=== PATIENT | female | born 1975 | race Caucasian/White ===

== ENCOUNTER 2019-12-12 16:04 | Outpatient (CLI) | payer BC, SELFPAY ==
--- NOTE | ~2019-12-12 | MM_ITS ---
EXAMINATION: MM screening dara BI w segun HISTORY: Screening mammogram TECHNIQUE: Craniocaudal and mediolateral oblique 3-D tomosynthesis images were obtained and synthetic 2-D images were generated. CAD analysis was submitted and interpreted. COMPARISON: 08/04/2017, 11/08/2014 bilateral digital screening mammogram examinations BREAST PARENCHYMAL COMPOSITION: There are scattered areas of fibroglandular density. FINDINGS: There is a biopsy marker on the right; history of prior benign right breast biopsy. There is an approximately 4 mm asymmetric ill-defined irregular opacity in the posterior lateral aspe ct of the left breast (craniocaudal Tomosynthesis image 29/77). Otherwise there is no evidence of suspicious mass, calcification, or architectural distortion to sugg est malignancy in either breast. There has been no suspicious interval change. IMPRESSION: 1. Asymmetric 4 mm ill-defined opacity in posterior lateral left breast 2. Diagnostic left mammogram is recommended, with ultrasound if required BI-RADS Category 0: Incomplete: Needs additional imaging evaluation. Reviewed, dictated and finalized at location A.
== END 2019-12-12 16:05 | disposition home or self-care (01) ==
LOC: ANHIMG 16:07
PROVIDERS: PCP Internal Medicine; Visit Provider Clinical Nurse Specialist
DX: Z12.31 Encounter for screening mammogram for malignant neoplasm of breast (principal); R92.8 Other abnormal and inconclusive findings on diagnostic imaging of breast
CPT/HCPCS: 77063; 77067

== ENCOUNTER 2020-01-04 12:50 | Outpatient (CLI) | payer BC, SELFPAY ==
--- NOTE | ~2020-01-04 | MM_ITS ---
EXAMINATION: MM diagnostic mammo unilat LT HISTORY: Left breast asymmetry TECHNIQUE: Additional 3-D tomosynthesis images of the left breast were performed and synthetic 2-D im ages were generated. CAD analysis was submitted and interpreted. COMPARISON: 12/12/2019, 08/04/2017, 11/08/2014 FINDINGS: There is a return to baseline fibroglandular appearance in the left breast in the area ques tioned on screening mammogram. No suspicious mass, calcification, or architectural distortion are vita ntified. IMPRESSION: 1. No mammographic evidence of malignancy. 2. Recommend routine screening mammography in one year. BI-RADS Category 1: Negative Reviewed, dictated and finalized at location A. 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
== END 2020-01-04 12:51 | disposition home or self-care (01) ==
LOC: ANHIMG 12:57
PROVIDERS: PCP Internal Medicine; Visit Provider Clinical Nurse Specialist
DX: R92.8 Other abnormal and inconclusive findings on diagnostic imaging of breast (principal)
CPT/HCPCS: 77065

== ENCOUNTER 2020-09-13 13:31 | Outpatient (CLI) | payer OTHER, SELFPAY ==
--- NOTE | ~2020-09-13 | XR_ITS ---
XR knee LT min 4V DATE: 09/13/2020 14:11 INDICATION: Bilateral knee pain, cracking, popping TECHNIQUE: [place], lateral, AP and PA views COMPARISON: None FINDINGS: No fracture or dislocation or joint effusion. No periosteal reaction or bone destruction. N o opaque intra-articular loose body or chondrocalcinosis. IMPRESSION: No significant abnormality Reviewed, dictated and finalized at location A. IMPRESSION: No significant abnormality
--- NOTE | ~2020-09-13 | XR_ITS ---
XR knee RT min 4V DATE: 09/13/2020 14:11 INDICATION: Bilateral knee pain, cracking, popping TECHNIQUE: [place], lateral, PA and AP views COMPARISON: None FINDINGS: No fracture or dislocation or joint effusion. No periosteal reaction or bone destruction. N o radiopaque intra-articular loose body or chondrocalcinosis. Joint spaces are well preserved. IMPRESSION: Negative Reviewed, dictated and finalized at location A. IMPRESSION: Negative
== END 2020-09-13 13:32 | disposition home or self-care (01) ==
PROVIDERS: PCP Internal Medicine; Visit Provider Clinical Nurse Specialist
DX: M25.569 Pain in unspecified knee (principal)
CPT/HCPCS: 73564

== ENCOUNTER 2021-05-05 13:59 | Outpatient (CLI) | payer OTHER, SELFPAY ==
[2021-05-05 14:19] LABS: Basophils Absolute Auto 0.1 K/mm3 (0.0-0.1); Basophils Percent Auto 0.6 % (0.2-1.2); Eosinophils Absolute Auto 0.1 K/mm3 (0-0.3); Eosinophils Percent Auto 0.9 % (0-4.4); Hematocrit 40.5 % (37.0-47.0); Hemoglobin 13.5 g/dL (12.0-15.0); Immature Granulocyte Absolute 0.06 K/mm3 (0.00-0.031); Immature Granulocyte Percent A 0.5 % (0-0.5); Lymphocytes Absolute Auto 3.66 K/mm3 (0.9-3.2); Lymphocytes Percent Auto 29.6 % (18.3-44.2); Mean Corpuscular HGB Conc 33.3 g/dl (32-36); Mean Corpuscular Volume 87.1 fl (80-100); Mean Platelet Volume 8.9 fl (7.4-10.4); Monocytes Absolute Auto 1.2 K/mm3 (0.1-0.6); Monocytes Percent Auto 9.5 % (2.6-8.5); Neutrophils Absolute Auto 7.3 K/mm3 (1.3-6.7); Neutrophils Percent Auto 58.9 % (45.5-73.1); Platelet Count Result 308 k/mm3 (150-375); Red Blood Count 4.65 M/mm3 (4.2-5.4); Red Cell Distribution Width 12.8 % (11.5-14.5); White Blood Count 12.4 K/mm3 (4.5-10.0)
== END 2021-05-05 14:00 | disposition home or self-care (01) ==
LOC: ANHLAB 14:00
PROVIDERS: PCP Internal Medicine; Visit Provider Clinical Nurse Specialist
DX: D72.829 Elevated white blood cell count, unspecified (principal)
CPT/HCPCS: 36415; 85025

== ENCOUNTER → 2021-06-03 01:42 | Outpatient (CLI) | payer OTHER, SELFPAY ==
[2021-06-03 11:23] LABS: SARS-CoV-2 RNA PCR Negative
== END ==
PROVIDERS: PCP Internal Medicine; Visit Provider Clinical Nurse Specialist
DX: R05.9 Cough, unspecified (principal); Z20.822 Contact with and (suspected) exposure to COVID-19
CPT/HCPCS: C9803; U0003; U0005

== ENCOUNTER → 2021-06-04 09:05 | Outpatient (CLI) | payer OTHER, SELFPAY ==
--- NOTE | ~2021-06-04 | XR_ITS ---
EXAMINATION: XR chest 2V DATE: 06/04/2021 09:34 INDICATION: Cough, unspecified. TECHNIQUE: Frontal and lateral views of the chest were obtained. COMPARISON: Chest 2 views 11/20/2015 FINDINGS: The chest demonstrates clear lungs without pneumonia, pleural effusion, or pneumothorax. Th e heart size is normal. IMPRESSION: 1. No acute cardiopulmonary disease. Reviewed, dictated and finalized at location A.
== END ==
PROVIDERS: Visit Provider Clinical Nurse Specialist
DX: R05.9 Cough, unspecified (principal); R06.02 Shortness of breath
CPT/HCPCS: 71046

== ENCOUNTER 2021-07-16 16:40 | Outpatient (CLI) | payer OTHER, SELFPAY ==
--- NOTE | ~2021-07-16 | XR_ITS ---
EXAMINATION: XR chest 2V Exam Date/Time: 07/16/2021 16:50 CDT HISTORY: R06.02 -COUGH,CHRONIC STERNAL CP,SOB Comparison: 06/04/2021. RESULT: Lines, tubes, and devices: None. Lungs and pleura: Clear. Cardiomediastinal silhouette: Stable cardiomediastinal silhouette. Other: No acute osseous or upper abdominal finding. IMPRESSION: No acute cardiopulmonary process. Reviewed, dictated and finalized at location K.
== END 2021-07-16 16:41 | disposition home or self-care (01) ==
PROVIDERS: PCP Internal Medicine; Visit Provider Clinical Nurse Specialist
DX: R06.02 Shortness of breath (principal); R05.9 Cough, unspecified
CPT/HCPCS: 71046

== ENCOUNTER 2021-09-10 12:37 | Outpatient (CLI) | payer OTHER, SELFPAY ==
--- NOTE | 2021-09-12 20:11 | P.PCNPFT_ITS ---
PFT Procedure Performed PFT Procedure Performed Spirometry with Pre/Post Bronchodilator Plethysmography (Lung Vol) Diffusing Cap (DLCO) Flow Vol Loop PFT Interpretation DOS: 09/10/2021 REQUESTING: PRISCILLA Kaplan REASON FOR TESTING: Shortness of breath PULMONARY FUNCTION TESTS Results are reliable and reproducible. BMI is 36.4 Spirometry: The pre-bronchodilator FEV1 is 2.73 L, 100%, normal. The pre- bronchodilator FVC is 3.41 L, 101%, normal. The FEV1/FVC is 80%, normal. The EXC69-87% is 94%. There is a 1% decrease in FEV1, 2.72 L. There is a 4% decrease in FVC, 3.28 L. There is a 19% increase in YII84-64%, 500 ml. Lung volumes: Total lung capacity is 97%, 4.75 L. FRC 71%, 1.95 L, within the normal range. ERV 17%, 0.18 L, severely reduced. This may be due to increased BMI. RV is 79%, 1.34 L, normal. RV/TLC is 28%, normal, no air trapping. Diffusion: DLCO mildly decreased, 68%. DLCO/VA 107%, normal. Flow volume loop: Unremarkable. IMPRESSION: Normal spirometry, normal lung volumes, mild diffusion impairment. Jewels Machuca MD
== END 2021-09-10 12:38 | disposition home or self-care (01) ==
PROVIDERS: PCP Internal Medicine; Visit Provider Clinical Nurse Specialist
DX: R06.02 Shortness of breath (principal)
CPT/HCPCS: 94060; 94726; 94729

== ENCOUNTER → 2021-09-22 12:41 | Outpatient (CLI) | payer OTHER, SELFPAY ==
--- NOTE | ~2021-09-22 | CT_ITS ---
EXAMINATION: CT diagnostic chest w con DATE: 09/22/2021 13:11 INDICATION: Persistent cough. Chest pain. Shortness of breath. TECHNIQUE: Computed tomography (CT) of the chest was performed with 75 CC Omnipaque 350 intravenous c ontrast. Automated exposure control and iterative reconstruction technique were employed. Exam dose: 579.47 mGy-cm total exam DLP. COMPARISON: 07/16/2021 PA and lateral chest FINDINGS: The lungs are clear of infiltrate or consolidation or mass lesion. Normal heart size. No pericardial or pleural effusion. No thoracic aortic aneurysm or dissection. No hilar or mediastinal mass lesion or lymphadenopathy. Hepatic steatosis. 1.6 x 2.3 cm gallstone. Normal morphology of the adrenal glands. Included skeletal structures are unremarkable other than degenerative change of the cervical and thor acic spine, without evidence of suspicious lytic or blastic lesion. IMPRESSION: No significant abnormality Reviewed, dictated and finalized at Location A. Reviewed, dictated and finalized at location B. IMPRESSION: No significant abnormality
[2021-09-22 13:02] LABS: Estimated Glomerular Filt Rate > 60
== END ==
PROVIDERS: PCP Clinical Nurse Specialist; Visit Provider Clinical Nurse Specialist
DX: R05.9 Cough, unspecified (principal); R06.02 Shortness of breath; R07.9 Chest pain, unspecified
CPT/HCPCS: 71260; Q9967

== ENCOUNTER → 2022-01-20 15:41 | Outpatient (CLI) | payer OTHER, SELFPAY ==
--- NOTE | ~2022-01-20 | XR_ITS ---
XR lumbar spine 2-3V DATE: 01/20/2022 16:18 INDICATION: Back pain for 2 weeks TECHNIQUE: AP, lateral, coned lateral lumbosacral views COMPARISON: 09/22/2021 CT chest FINDINGS: Chronic mild anterior wedging of T10 and T11. There is degenerative spurring in the lower t horacic spine. Normal alignment of the lumbar vertebrae. No fracture or bone destruction. The lumbar pedicles are in tact. No spondylolisthesis. Moderate degenerative disease at L1-2 and L2-3, mild degenerative disc disease at L3-4. Moderately severe degenerative disc disease at L4-5 and L5-S1. The sacroiliac joints are intact. IUD overlies the pelvis. IMPRESSION: Multilevel degenerative disc disease Reviewed, dictated and finalized at location B. 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
== END ==
PROVIDERS: PCP Clinical Nurse Specialist; Visit Provider Clinical Nurse Specialist
DX: M54.9 Dorsalgia, unspecified (principal); M51.36 Other intervertebral disc degeneration, lumbar region
CPT/HCPCS: 72100

== ENCOUNTER → 2022-03-17 10:09 | Outpatient (CLI) | payer OTHER, SELFPAY ==
--- NOTE | ~2022-03-17 | MM_ITS ---
EXAMINATION: MM screening dara BI w segun HISTORY: Screening mammogram TECHNIQUE: Craniocaudal and mediolateral oblique 3-D tomosynthesis images were obtained and synthetic 2-D images were generated. CAD analysis was submitted and interpreted. COMPARISON: 01/04/2020 diagnostic left mammogram 12/12/2019, 08/04/2017 bilateral screening mammogram examinations BREAST PARENCHYMAL COMPOSITION: There are scattered areas of fibroglandular density. FINDINGS: Biopsy marker on the right; history of prior benign right breast biopsy. Stable benign prom inent calcification in the upper mid right breast. Stable 5 mm opacity in the posterior mid to lower outer left breast since 2018. There is no evidence of suspicious mass, calcification, or architectura l distortion to suggest malignancy in either breast. There has been no suspicious interval change. IMPRESSION: 1. No mammographic evidence of malignancy. 2. Recommend routine screening mammography in one year. BI-RADS Category 2: Benign finding(s). Reviewed, dictated and finalized at location A. MEN
== END ==
PROVIDERS: PCP Internal Medicine; Visit Provider Obstetrics & Gynecology Gynecology
DX: Z12.31 Encounter for screening mammogram for malignant neoplasm of breast (principal)
CPT/HCPCS: 77063; 77067

== ENCOUNTER 2022-03-17 16:26 | Outpatient (CLI) | payer OTHER, SELFPAY ==
--- NOTE | ~2022-03-17 | MR_ITS ---
MRI of the lumbar spine Clinical History: Back pain Technique: Axial T2-weighted images, and sagittal T1-weighted, T2-weighted, and T2 fat-sat images wer e acquired. Findings: There is no fracture or subluxation of the lumbar spine. Vertebral bodies maintain normal h eight and alignment. No focal bone marrow signal abnormality seen. At L1-L2, there is no disc bulge or herniation. There is no spinal canal stenosis or neural foraminal narrowing. At L2-L3, there is no significant disc bulge or herniation. There is minimal facet arthropathy. No sp inal canal stenosis or neural foraminal narrowing. At L3-L4, there is mild diffuse disc bulge and mild facet arthropathy. There is minimal compression o f the thecal sac at this level. Right neural foramen is mildly narrowed. Left neural foramen preserve d. At L4-L5, there is mild diffuse disc bulge and mild facet arthropathy. There is probable mild lateral recess stenosis bilaterally. There is moderate left neural foraminal narrowing and mild right neural foraminal narrowing. At L5-S1, there is mild disc bulge. There is mild facet arthropathy. No spinal canal stenosis. There is probable mild narrowing of the right neural foramen related to disc bulge. Left neural foramen pre served. Paravertebral soft tissues are unremarkable. Impression: Mild degenerative spondylosis, as detailed above. Findings are probably worst at L3-L4 and L4-L5. Reviewed, dictated and finalized at [facility]. 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 Findings are probably worst a t L3-L4 and L4-L5.
== END 2022-03-17 16:27 ==
PROVIDERS: PCP Internal Medicine; Visit Provider Nurse Practitioner
DX: M47.816 Spondylosis without myelopathy or radiculopathy, lumbar region (principal); M54.50 Low back pain, unspecified
CPT/HCPCS: 72148

== ENCOUNTER 2023-11-01 14:57 | Outpatient (CLI) | payer BC, SELFPAY ==
--- NOTE | ~2023-11-01 | MM_ITS ---
EXAMINATION: MM screening dara BI w segun HISTORY: Screening mammogram TECHNIQUE: Craniocaudal and mediolateral oblique 3-D tomosynthesis images were obtained and synthetic 2-D images were generated. CAD analysis was submitted and interpreted. COMPARISON: 03/17/2022, 12/12/2019 BREAST PARENCHYMAL COMPOSITION:Not Dense. There are scattered areas of fibroglandular density. FINDINGS: No suspicious mass, calcification, or architectural distortion are identified in either joann ast to suggest malignancy. There has been no suspicious interval change. IMPRESSION: No mammographic evidence of malignancy. Recommend routine screening mammography in one year. BI-RADS Category 1: Negative Reviewed, dictated and finalized at location .
== END 2023-11-01 14:58 | disposition home or self-care (01) ==
PROVIDERS: PCP Nurse Practitioner; Visit Provider Nurse Practitioner
DX: Z12.31 Encounter for screening mammogram for malignant neoplasm of breast (principal)
CPT/HCPCS: 77063; 77067

== ENCOUNTER 2024-06-13 03:15 | Day surgery (SDC) | payer BC, SELFPAY ==
[2024-06-02 09:32] VITALS: BMI 37.2
--- OUTSIDE RECORDS SUMMARY | 2024-06-13 03:18 | XMS_ITS | Clinical Summary ---
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 Name Role Phone Unavailable Primary Care Provider Unavailabl e Social History Tobacco Use Types Packs/Day Years Used Date Smoking Tobacco: Never Assessed Comments Unknown Sex and Gender Information Value Date Recorded Sex Assigned at Not on file Legal Sex Female 7:24 PM CDT Gender Identity Not on file Sexual Orientation Not on file Plan of Treatment Health Maintenance Due Date Last Done Comments Cervical Cancer Screening Pa p Smear (Age 30 to 64) Every 3 Years 1973 Colorectal Cancer Screening Colonoscopy (10 Years) 1973 Annual Physical 1976 Hepatitis C 09/03/1991 DTaP, Tdap and Td Vaccines ( 1 - Tdap) 1992 Hepatitis B Vaccines (1 of 3 - 19+ 3-dose series) 1992 Cervical Cancer Screening Pa p with HPV Testing (Age 30 to 64) Every 5 Years 09/03/2003 Cervical Cancer Screening with HPV 09/03/2003 Mammogram Screening 2013 Pneumococcal Vaccine: 50+ Ye ars (1 of 1 - PCV) 09/03/2023 Zoster Vaccines (1 of 2) 09/03/2023 COVID-19 Vaccine ( - 2023-2 5 season) 2023 Meningococcal B Vaccine Aged Out No l onger eligible based on patient's age to complete this topic Meningococcal Vaccine Aged Out No brit willie eligible based on patient's age to complete this topic RSV Immunizations Under 20 Months Aged Out No longer eligible based on patient's age to complete this topic
--- OUTSIDE RECORDS SUMMARY | 2024-06-13 03:18 | XMS_ITS | Clinical Summary ---
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 2 Active buPROPion HCL (WELLBUTRIN XL) 300 mg Extended Release 24 hour tablet TAKE 1 TABLET BY MOUTH IN THE MORNING 2 Active albuterol sulfate 90 mcg/Actuation inhaler INHALE 1 PUFF BY MOUTH EVERY 4 HOURS NEEDED FOR SHORTNESS OF BREATH OR FOR WHEEZING 2 Active Active Problems Problem Noted Date Diagnosed Date Leukocytosis (leucocytosis) 08/01/2021 Family History Medical History Relation Name Comments Lung Cancer Father Relation Name Status Comments Brother 1 Alive Brother 2 Alive Brother 3 Alive Daughter Alive Father Mother Alive Son Alive Social History Tobacco Use Types Packs/Day Years Used Date Smoking Tobacco: Former Cigarettes Smokeless Tobacco: Never Comments:quit 18 years ago Alcohol Use Standard Drinks/Week Comments Yes 0 (1 standard drink = 0.6 oz pur e alcohol) occasional Comments Unknown Sex and Gender Information Value Date Recorded Sex Assigned at Not on file Legal Sex Female 2:03 PM CDT Gender Identity Not on file Sexual Orientation Not on file Last Filed Vital Signs Vital Sign Reading Time Taken Comments Blood Pressure 123/84 12/02/2021 3:47 PM CDT Pulse 120 12/02/2021 3:47 PM CDT Temperature 36.5 C (97.7 F) 12/02/2021 3:47 PM CDT Respiratory Rate 14 09/12/2021 9:36 AM CDT Oxygen Saturation 98% 12/02/2021 3:47 PM CDT Inhaled Oxygen Concentration - - Weight 93.9 kg (207 lb) 12/02/2021 3:47 PM CDT Height 160 cm (5' 3 ) 12/02/2021 3:47 PM CDT Body Mass Index 36.67 12/02/2021 3:47 PM CDT Plan of Treatment Health Maintenance Due Date Last Done Comments DTAP/TDAP/TD VACCINES (1 - Tdap) 1992 HEPATITIS B VACCINES (1 of 3 - 19+ 3-dose series) 1992 HPV/Cotest (21-29) 1994 HPV/Cotest (30-65) 09/03/2003 BREAST CANCER SCREENING 2013 COLORECTAL SCREENING 2018 Colorectal Cancer Screening 2018 FIT-DNA Q 3 years 2018 FIT/FOBT Q 1 year 2018 Flex Sig/CT Colonography Q 5 years 2018 CERVICAL CANCER SCREENING 08/22/2023 PAP SMEAR 08/22/2023 08/21/2020 ZOSTER VACCINE (1 of 2) 09/03/2023 INFLUENZA VACCINE (#1) 2023 PNEUMOCOCCAL VACCINE 0-49 YEARS Aged Out No longer eligible based on patient's age to complete this topic Insurance [employer] [id number] Care Teams Wharf Helper Relationship Specialty Start Date End Date Jorge Gamez DO [address] [place] [address] PCP - General Internal Medicine 08/01/21
[2024-06-13 07:47] VITALS: BP 130/83; PULSE 89; RESP 16; TEMP 36.6; O2SAT 99; BMI 36.6
[2024-06-13 07:55] LABS: BEDSIDEPREGUCG Negative (Negative)
[2024-06-13] MEDS: LACTATED RINGERS 1,000 ML 150 ML IV CONT (07:59)
--- NOTE | 2024-06-13 08:03 | WPDANESEPPF ---
Anes - Initial Pre Proc Eval Procedure: Operation Date: 06/13/24 09:00 Proposed Procedures p Colonoscopy - Osbaldo Boss MD Date/Time: 06/13/24 08:03 Surgeon: Osbaldo Boss MD Pre Op Diagnosis: hx of colon polyps Patient Data Age: 48 Gender: F Height: 1.6 m Weight: 93.9 kg Last Vital Signs Temp 36.6 C 06/13/24 07:47 Pulse 89 06/13/24 07:47 Resp 16 06/13/24 07:47 BP 130/83 06/13/24 07:47 Pulse Ox 99 06/13/24 07:47 O2 Del Method Room Air 06/13/24 07:47 Allergies Allergy/AdvReac Type Severity Reaction Status Date / Time lisinopril AdvReac Cough Verified 06/13/24 07:46 Home Medications ?Medication ?Instructions ?Recorded ?Confirmed ?Type multivitamin 1 tablet PO DAILY 11/14/19 06/13/24 History cyclobenzaprine 5 mg tablet 5 mg PO TID PRN muscle spasm #30 01/20/22 06/02/24 Rx tabs turmeric 400 mg capsule 375 mg PO DAILY 01/20/22 06/13/24 History spironolactone 100 mg tablet 50 mg (1/2 x 100 mg) .Route 01/22/23 06/13/24 Rx .COMPLEX #90 tabs bupropion HCl 300 mg 24 hr tablet, 300 mg PO QAM #90 tabs 10/26/23 06/13/24 Rx extended release amlodipine 5 mg tablet 5 mg PO DAILY #90 tabs 01/31/24 06/13/24 Rx rosuvastatin 5 mg tablet 5 mg PO DAILY #90 tabs 01/31/24 06/13/24 Rx hydrochlorothiazide 25 mg tablet See Rx Instructions .Route 03/06/24 06/13/24 Rx .COMPLEX #90 tabs levothyroxine 125 mcg tablet See Rx Instructions .Route 03/06/24 06/13/24 Rx .COMPLEX #90 tabs losartan 50 mg tablet See Rx Instructions .Route 03/06/24 06/13/24 Rx .COMPLEX #90 tabs cholecalciferol (vitamin D3) 25 25 mcg PO DAILY 06/02/24 06/13/24 History mcg (1,000 unit) capsule (Vitamin D3) omeprazole 40 mg capsule,delayed 40 mg PO DAILY 06/02/24 06/13/24 History release Laboratory Tests 06/13/24 07:52 POC Urine HCG, Qual Negative (Negative) Patient hx anesthesia problems: none Family hx anesthesia problems: none Results Review: All pre-operative results and documents have been reviewed as part of the pre-operative evaluation. [facility] Past Medical History Medical History Weight gain Rectal polyp Pain in right shoulder Impingement syndrome of left shoulder Hematochezia Chronic pain of right knee Chronic pain of both shoulders Chronic fatigue Chondromalacia of right patellofemoral joint Chest wall pain Breast cancer screening Benign essential hypertension Acute right-sided low back pain without sciatica Hypothyroidism Hypertension Anxiety Hyperlipidemia Restless leg syndrome Surgical History Surgical History H/O breast augmentation Family History Family History Father Family history of lung cancer Hypertension Acute myocardial infarction Family history of cardiovascular disease Grandparent Hypertension Family history of cardiovascular disease Cerebrovascular accident Other Family history of malignant neoplasm Social History Social History Social History: Caffeine-coffee Smoking status: Former smoker Smoking end date: 02/22/95 Alcohol intake: current Drinks per week: 3 Alcohol use details: occasional Substance use: never Substance use type: does not use Lack of Transportation: No Lack of Food: Never True Current Housing: I Have Housing Concerned About Future Housing: No Difficulty Paying Gas/Electric Bills: No Difficulty Paying for Meds: YES Currently Unemployed: No Education: High School Diploma/GED Difficulty w/ Childcare or Family Care: No Living arrangements: with family Spiritual care concerns: No Anes - Eval Final PreProcedure Day of Procedure 06/13/24 08:03 Patient weight: obese Heart: regular rate and rhythm Lungs: clear to auscultation Airway: Mallampati scale class II Neurological: alert and oriented Last oral intake: >/= 8 hours ASA classification: III Emergent: no Anesthetic plan: proceed Anesthesia type and monitoring: general GIVS and standard monitoring Results Review: All pre-operative results and documents have been reviewed as part of the pre-operative evaluation. Informed Consent: The patient's anesthetic plan and its attendant risks and benefits were discussed with the patient/family/POA. Questions were solicited and answers provided to the satisfaction of the patient/family/POA.
--- NOTE | 2024-06-13 08:34 | PM.HPGS ---
History of Present Illness History of Present Illness Consent: Risks, benefits, and alternatives have been discussed and questions answered. Patient agrees to proceed with procedure. Chief complaint: hx of colon polyps Narrative: Stefanie Galvan is a 48 year old female with colon polyp Review of Systems Review of Systems: All systems reviewed & are unremarkable except as noted in HPI and below PMFSH Past Medical History Medical History Weight gain Rectal polyp Pain in right shoulder Impingement syndrome of left shoulder Hematochezia Chronic pain of right knee Chronic pain of both shoulders Chronic fatigue Chondromalacia of right patellofemoral joint Chest wall pain Breast cancer screening Benign essential hypertension Acute right-sided low back pain without sciatica Hypothyroidism Hypertension Anxiety Hyperlipidemia Restless leg syndrome Surgical History Surgical History H/O breast augmentation Family History Family History Father Family history of lung cancer Hypertension Acute myocardial infarction Family history of cardiovascular disease Grandparent Hypertension Family history of cardiovascular disease Cerebrovascular accident Other Family history of malignant neoplasm Social History Social History Social History: Caffeine-coffee Smoking status: Former smoker Smoking end date: 02/22/95 Alcohol intake: current Drinks per week: 3 Alcohol use details: occasional Substance use: never Substance use type: does not use Lack of Transportation: No Lack of Food: Never True Current Housing: I Have Housing Concerned About Future Housing: No Difficulty Paying Gas/Electric Bills: No Difficulty Paying for Meds: YES Currently Unemployed: No Education: High School Diploma/GED Difficulty w/ Childcare or Family Care: No Living arrangements: with family Spiritual care concerns: No Meds Home Medications and Allergies Home Medications ?Medication ?Instructions ?Recorded ?Confirmed ?Type multivitamin 1 tablet PO DAILY 11/14/19 06/13/24 History cyclobenzaprine 5 mg tablet 5 mg PO TID PRN muscle spasm #30 01/20/22 06/02/24 Rx tabs turmeric 400 mg capsule 375 mg PO DAILY 01/20/22 06/13/24 History spironolactone 100 mg tablet 50 mg (1/2 x 100 mg) .Route 01/22/23 06/13/24 Rx .COMPLEX #90 tabs bupropion HCl 300 mg 24 hr tablet, 300 mg PO QAM #90 tabs 10/26/23 06/13/24 Rx extended release amlodipine 5 mg tablet 5 mg PO DAILY #90 tabs 01/31/24 06/13/24 Rx rosuvastatin 5 mg tablet 5 mg PO DAILY #90 tabs 01/31/24 06/13/24 Rx hydrochlorothiazide 25 mg tablet See Rx Instructions .Route 03/06/24 06/13/24 Rx .COMPLEX #90 tabs levothyroxine 125 mcg tablet See Rx Instructions .Route 03/06/24 06/13/24 Rx .COMPLEX #90 tabs losartan 50 mg tablet See Rx Instructions .Route 03/06/24 06/13/24 Rx .COMPLEX #90 tabs cholecalciferol (vitamin D3) 25 25 mcg PO DAILY 06/02/24 06/13/24 History mcg (1,000 unit) capsule (Vitamin D3) omeprazole 40 mg capsule,delayed 40 mg PO DAILY 06/02/24 06/13/24 History release Allergies Allergy/AdvReac Type Severity Reaction Status Date / Time lisinopril AdvReac Cough Verified 06/13/24 07:46 Vital Signs Vital Signs - 24 hr 06/13/24 07:47 Temperature 97.8 F Pulse Rate 89 Respiratory Rate 16 Blood Pressure 130/83 Pulse Oximetry 99 Oxygen Delivery Room Air Exam Const: General: comfortable and no acute distress HENMT: Face/Nose/Sinus: Normal nares present Eyes: General: appearance normal, both eyes and all related structures Neck: Neck: no JVD Resp: Auscultation: clear to auscultation bilaterally Cardio: Rate: regular rate Rhythm: regular rhythm GI: Inspection: non-distended GI Palp: Yes Soft to palpation Skin: General skin exam: normal color Neuro: Speech: normal speech Extrem: General: normal to inspection Psych: Mental Status: mental status grossly normal Assessment and Plan Assessment and plan (1) History of colonic polyps: Code(s): Z86.010 - Personal history of colon polyps Status: Acute Assessment and Plan: colonoscopy
[2024-06-13 08:50] VITALS: BP 111/69; PULSE 93; RESP 23; O2SAT 99
[2024-06-13 09:00] VITALS: BP 124/70; PULSE 82; RESP 18; O2SAT 100
[2024-06-13 09:10] VITALS: BP 127/90; PULSE 80; RESP 20; O2SAT 100
== END 2024-06-13 09:15 | disposition home or self-care (01) ==
PROVIDERS: Anesthesiology; PCP Clinical Nurse Specialist; Referring Provider Clinical Nurse Specialist; Visit Provider Internal Medicine Gastroenterology
PROC: 0DJD8ZZ Inspection of Lower Intestinal Tract, Via Natural or Artificial Opening Endoscopic (ICD-10-PCS; CPT 45378; principal; 2024-06-13 09:00)
DX: Z12.11 Encounter for screening for malignant neoplasm of colon (principal); I10 Essential (primary) hypertension; E03.9 Hypothyroidism, unspecified; E78.5 Hyperlipidemia, unspecified; F41.9 Anxiety disorder, unspecified; G25.81 Restless legs syndrome; R53.82 Chronic fatigue, unspecified; G89.29 Other chronic pain; M25.512 Pain in left shoulder; M25.561 Pain in right knee; M25.511 Pain in right shoulder; E66.9 Obesity, unspecified; Z68.36 Body mass index [BMI] 36.0-36.9, adult; Z98.890 Other specified postprocedural states; Z87.891 Personal history of nicotine dependence; Z86.0100 Personal history of colon polyps, unspecified; Z80.1 Family history of malignant neoplasm of trachea, bronchus and lung; Z82.49 Family history of ischemic heart disease and other diseases of the circulatory system
CPT/HCPCS: 45378; J2003; J2704; J7120